=== PATIENT | female | born 1935 | race Hispanic/Latino ===

== ENCOUNTER 2021-02-21 21:13 | Inpatient (IN) | payer MEDICARE ==
[~2021-02-21] VITALS: Ht 160 cm; Wt 59.4 kg
[2021-02-21] MEDS ORDERED: SODIUM CHLORIDE 0.9% 1000ML 1,000 ML IV ONE ×2 (21:30)
[2021-02-21] MEDS ORDERED: PIPERACILLIN/TAZOBACTAM 3.375 GM in SODIUM CHLORIDE 0.9% 50ML 50 ML IV ONE (21:30)
[2021-02-21 21:45] LABS: BASOPHILS % 0.2 % (0.0-1.0); HEMATOCRIT 46.8 % (34.2-44.1); HEMOGLOBIN 15.1 g/dL (12.0-16.0); LYMPHOCYTES # (AUTO) 0.9 (1.0-3.2); LYMPHOCYTES % 6.6 % (18.0-39.1); MEAN CORPUSCULAR HEMOGLOBIN 26.3 pg (28-32); MEAN CORPUSCULAR HGB CONC 32.3 g/dL (31-35); MEAN CORPUSCULAR VOLUME 81.4 fL (81-99); MONOCYTES # (AUTO) 1.7 (0.2-0.8); MONOCYTES % 11.7 % (4.4-11.3); NEUTROPHILS # (AUTO) 11.6 (2.1-6.9); NEUTROPHILS % 80.9 % (38.7-80.0); PLATELET COUNT 277 x10e3/uL (140-360); RED BLOOD COUNT 5.75 x10e6/uL (3.6-5.1); RED CELL DISTRIBUTION WIDTH 14.2 % (11.7-14.4)
[2021-02-21 22:04] LABS: ALANINE AMINOTRANSFERASE 18 IU/L (0-55); ANION GAP 16.1 mmol/L (8-16); BLOOD UREA NITROGEN 16 mg/dL (7-26); BUN/CREATININE RATIO 10 (6-25); CALCIUM 9.9 mg/dL (8.4-10.2); CARBON DIOXIDE 21 mmol/L (22-29); CHLORIDE 98 mmol/L (98-107); CREATININE, SERUM 1.56 mg/dL (0.57-1.11); EST GLOMERULAR FILTRATION RATE 32 ML/MIN (60-); GLUCOSE 197 mg/dL (74-118); POTASSIUM 3.1 mmol/L (3.5-5.1); SODIUM 132 mmol/L (136-145)
[2021-02-21 22:05] LABS: ALBUMIN 3.3 g/dL (3.5-5.0); ALBUMIN/GLOBULIN RATIO 0.8 (0.8-2.0); ALKALINE PHOSPHATASE 67 IU/L (40-150); CREATINE KINASE 185 IU/L (29-168)
[2021-02-21 23:34] LABS: CLARITY,URINE CLEAR (CLEAR); COLOR,URINE YELLOW (YELLOW); KETONES,URINE NEGATIVE (NEGATIVE); LEUKOCYTE ESTERASE ,URINE NEGATIVE (NEGATIVE); NITRITE,URINE NEGATIVE (NEGATIVE); PROTEIN,URINE DIPSTICK TRACE (NEGATIVE); URINE UROBILINOGEN 1 mg/dL (0.2 - 1)
[2021-02-21 23:39] LABS: BACTERIA,URINE FEW /HPF; EPITHELIAL CELLS,URINE FEW /LPF; RBC,URINE 0-5 /HPF (0-5); WBC,URINE (MAN) 0-5 /HPF (0-5)
[2021-02-22] MEDS: SODIUM CHLORIDE 0.9% 1000ML 1,000 ML IV SCH ×3 (00:01→23:29)
[2021-02-22] MEDS ORDERED: ONDANSETRON HCL INJ 2MG/ML 2ML 2 MG/ML VIAL IV PRN (00:15)
[2021-02-22] MEDS ORDERED: ACETAMINOPHEN 325 MG TAB PO PRN (00:15)
[2021-02-22] MEDS ORDERED: SODIUM CHLORIDE 0.9% 250ML 250 ML IV ONE (01:45)
[2021-02-22] MEDS ORDERED: TRIAMTERENE-HCTZ1 EA PO (01:55)
[2021-02-22] MEDS ORDERED: AMLODIPINE-BEN1 EAC4 PO (01:55)
[2021-02-22] MEDS ORDERED: MONTELUKAST SOD10 MG PO (01:55)
[2021-02-22] MEDS ORDERED: FLUOXETINE HCL20 MG PO (01:55)
[2021-02-22] MEDS ORDERED: METFORMIN HCL500 MG PO (01:55)
[2021-02-22 02:00] VITALS: BP 72/57
[2021-02-22] MEDS: MIDODRINE 2.5 MG TAB PO SCH ×4 (05:07→16:59)
[2021-02-22 06:10] VITALS: BP 83/48
[2021-02-22] MEDS ORDERED: DEXTROSE 50% SYRINGE 50 ML IV PRN (07:45)
[2021-02-22 08:05] LABS: BASOPHILS % 0.2 % (0.0-1.0); EOSINOPHILS % 0.3 % (0.0-6.0); HEMATOCRIT 36.7 % (34.2-44.1); HEMOGLOBIN 11.6 g/dL (12.0-16.0); LYMPHOCYTES # (AUTO) 1.1 (1.0-3.2); LYMPHOCYTES % 9.3 % (18.0-39.1); MEAN CORPUSCULAR HEMOGLOBIN 26.4 pg (28-32); MEAN CORPUSCULAR HGB CONC 31.6 g/dL (31-35); MEAN CORPUSCULAR VOLUME 83.4 fL (81-99); MONOCYTES # (AUTO) 1.7 (0.2-0.8); MONOCYTES % 13.8 % (4.4-11.3); NEUTROPHILS # (AUTO) 9.2 (2.1-6.9); PLATELET COUNT 218 x10e3/uL (140-360); RED CELL DISTRIBUTION WIDTH 14.3 % (11.7-14.4)
[2021-02-22 08:25] LABS: ANION GAP 10.1 mmol/L (8-16); CALCIUM 7.5 mg/dL (8.4-10.2); CREATININE, SERUM 0.8 mg/dL (0.57-1.11); POTASSIUM 3.1 mmol/L (3.5-5.1)
[2021-02-22 08:29] LABS: CREATINE KINASE MB 2.5 ng/mL (0-5.0)
[2021-02-22] MEDS: Aztreonam 1 GM in SODIUM CHLORIDE 0.9% 50ML 50 ML IV SCH ×2 (08:30→20:37)
[2021-02-22 09:00] VITALS: BP 83/48
[2021-02-22] MEDS: HEPARIN SOD (PORCINE) 5,000 UNIT/ML VIAL SC SCH ×2 (09:00→20:45)
[2021-02-22] MEDS: FLUOXETINE HCL 20 MG CAP PO SCH (09:15)
[2021-02-22] MEDS: PREDNISONE 20 MG TAB PO SCH (09:15)
[2021-02-22] MEDS: MONTELUKAST SODIUM 10 MG TAB PO SCH (09:15)
[2021-02-22] MEDS: INSULIN REGULAR, HUMAN 100 UNIT/1 ML SQ SCH ×3 (11:18→20:37)
[2021-02-22] MEDS ORDERED: POTASSIUM CHLORIDE 20 MEQ TAB CR PO ONE (12:00)
[2021-02-22 16:47] LABS: CREATINE KINASE MB 2.5 ng/mL (0-5.0)
[2021-02-22 20:53] VITALS: BP 91/56
[2021-02-22 21:00] VITALS: BP 91/56
[2021-02-23] MEDS: ALBUTEROL/IPRATROPIUM 3 ML NEB NEB PRN ×3 (02:45→13:30)
[2021-02-23 05:09] VITALS: BP 92/59
[2021-02-23 05:31] LABS: BASOPHILS % 0.1 % (0.0-1.0); EOSINOPHILS % 0.3 % (0.0-6.0); HEMATOCRIT 34.5 % (34.2-44.1); HEMOGLOBIN 10.8 g/dL (12.0-16.0); LYMPHOCYTES # (AUTO) 1.1 (1.0-3.2); LYMPHOCYTES % 11.4 % (18.0-39.1); MEAN CORPUSCULAR HEMOGLOBIN 26.3 pg (28-32); MEAN CORPUSCULAR HGB CONC 31.3 g/dL (31-35); MEAN CORPUSCULAR VOLUME 84.1 fL (81-99); MONOCYTES # (AUTO) 1.1 (0.2-0.8); MONOCYTES % 10.9 % (4.4-11.3); NEUTROPHILS # (AUTO) 7.6 (2.1-6.9); NEUTROPHILS % 76.8 % (38.7-80.0); PLATELET COUNT 186 x10e3/uL (140-360); RED CELL DISTRIBUTION WIDTH 14.6 % (11.7-14.4)
[2021-02-23 05:55] LABS: ALBUMIN 2.3 g/dL (3.5-5.0); ALBUMIN/GLOBULIN RATIO 0.9 (0.8-2.0); ANION GAP 9.3 mmol/L (8-16); CALCIUM 7.8 mg/dL (8.4-10.2); CREATININE, SERUM 0.7 mg/dL (0.57-1.11); POTASSIUM 3.3 mmol/L (3.5-5.1)
[2021-02-23] MEDS ORDERED: BENZONATATE 100 MG CAP PO PRN (06:45)
[2021-02-23] MEDS: INSULIN REGULAR, HUMAN 100 UNIT/1 ML SQ SCH ×2 (07:30→11:30)
[2021-02-23] MEDS ORDERED: POTASSIUM CHLORIDE 20 MEQ TAB CR PO ONE (08:00)
[2021-02-23 08:34] VITALS: BP 150/74
[2021-02-23 09:00] VITALS: BP 150/74
[2021-02-23] MEDS: HEPARIN SOD (PORCINE) 5,000 UNIT/ML VIAL SC SCH (09:00)
[2021-02-23] MEDS: MIDODRINE 2.5 MG TAB PO SCH ×2 (09:40→11:53)
[2021-02-23] MEDS: Aztreonam 1 GM in SODIUM CHLORIDE 0.9% 50ML 50 ML IV SCH (09:40)
[2021-02-23] MEDS: MONTELUKAST SODIUM 10 MG TAB PO SCH (09:40)
[2021-02-23] MEDS: FLUOXETINE HCL 20 MG CAP PO SCH (09:40)
[2021-02-23] MEDS: PREDNISONE 20 MG TAB PO SCH (09:40)
[2021-02-23 11:59] VITALS: BP 138/89
[2021-02-23] MEDS ORDERED: PREDNISONE20 MG PO (13:07)
[2021-02-23] MEDS ORDERED: ADULT WAL-TUSS118 ML PO (13:07)
[2021-02-23] MEDS ORDERED: LORATADINE10 MG PO (13:07)
[2021-02-23] MEDS ORDERED: ZITHROMAX500 MG PO (13:07)
[2021-02-23] MEDS ORDERED: PROVENTIL HFA6.7 GM INH (13:07)
[2021-02-23] MEDS ORDERED: TESSALON PERLE100 MG PO (13:07)
[2021-02-23] MEDS ORDERED: LEVOFLOXACIN250 MG PO (13:09)
== END 2021-02-23 14:35 | disposition home or self-care (01) | DRG 872 ==
LOC: ER 21:25 → ERHOLD 02-22 00:04 → MED/SURG3 02-22 01:01
PROVIDERS: ADMIT Internal Medicine; ATTEND Internal Medicine
DX: A41.9 Sepsis, unspecified organism (principal); J44.1 Chronic obstructive pulmonary disease with (acute) exacerbation; N17.9 Acute kidney failure, unspecified; E87.6 Hypokalemia; F39 Unspecified mood [affective] disorder; E11.9 Type 2 diabetes mellitus without complications; Z87.891 Personal history of nicotine dependence; Z20.822 Contact with and (suspected) exposure to COVID-19
CPT/HCPCS: 36415; 71045; 80048; 80053; 80061; 81001; 82550; 82553; 82948; 83036; 83605; 84484; 85025; 87040; 87086; 87400; 93005; 94640; 94799; 96361; 99284; J0456; J1644; J2543; J7030; J7050; J7512; U0002

== ENCOUNTER 2022-08-05 07:07 | Inpatient (IN) | payer MEDICARE ==
[~2022-08-05] VITALS: Ht 160 cm; Wt 59.4 kg
[~2022-08-05 07:07] MED LIST: ADULT WAL-TUSS118 ML PO; AMLODIPINE-BEN1 EAC4 PO; FLUOXETINE HCL20 MG PO; LEVOFLOXACIN250 MG PO; LORATADINE10 MG PO; METFORMIN HCL500 MG PO; MONTELUKAST SOD10 MG PO; PREDNISONE20 MG PO; PROVENTIL HFA6.7 GM INH; TESSALON PERLE100 MG PO; TRIAMTERENE-HCTZ1 EA PO; ZITHROMAX500 MG PO
[2022-08-05 07:28] LABS: BASOPHILS % 0.4 % (0.0-1.0); EOSINOPHILS % 0.3 % (0.0-6.0); HEMATOCRIT 41.8 % (34.2-44.1); HEMOGLOBIN 13.3 g/dL (12.0-16.0); LYMPHOCYTES # (AUTO) 0.8 (1.0-3.2); LYMPHOCYTES % 8.1 % (18.0-39.1); MEAN CORPUSCULAR HEMOGLOBIN 26.4 pg (28-32); MEAN CORPUSCULAR HGB CONC 31.8 g/dL (31-35); MEAN CORPUSCULAR VOLUME 83.1 fL (81-99); MONOCYTES # (AUTO) 1.4 (0.2-0.8); MONOCYTES % 13.5 % (4.4-11.3); NEUTROPHILS % 77.3 % (38.7-80.0); PLATELET COUNT 281 x10e3/uL (140-360); RED BLOOD COUNT 5.03 x10e6/uL (3.6-5.1); RED CELL DISTRIBUTION WIDTH 14.8 % (11.7-14.4)
[2022-08-05 08:04] LABS: ALBUMIN 3.5 g/dL (3.5-5.0); ALBUMIN/GLOBULIN RATIO 0.9 (0.8-2.0); ANION GAP 14.2 mmol/L (8-16); CREATININE, SERUM 0.67 mg/dL (0.57-1.11); POTASSIUM 4.2 mmol/L (3.5-5.1)
[2022-08-05] MEDS ORDERED: KETOROLAC TROMETHAMINE 30 MG/ML VIAL IV STA (08:31)
[2022-08-05] MEDS ORDERED: ASPIRIN 81 MG CHEW TAB PO ONE (09:15)
[2022-08-05] MEDS ORDERED: Morphine 4mg INJECTION 4 MG/ML INJ IV PRN (09:15)
[2022-08-05 09:42] VITALS: PULSE 74; RESP 18; O2SAT 97
[2022-08-05] MEDS ORDERED: ACETAMINOPHEN 325 MG TAB PO PRN (11:00)
[2022-08-05] MEDS ORDERED: DOCUSATE SODIUM 100 MG CAP PO PRN (11:00)
[2022-08-05] MEDS ORDERED: SIMETHICONE 80 MG CHEW PO PRN (11:00)
[2022-08-05] MEDS ORDERED: METHYLPREDNISOLONE SOD SUCC 40 MG/ML VIAL 1ML IV SCH (11:00)
[2022-08-05] MEDS ORDERED: MELATONIN 3 MG TAB PO PRN (11:00)
[2022-08-05] MEDS ORDERED: ONDANSETRON HCL INJ 2MG/ML 2ML 2 MG/ML VIAL IV PRN (11:00)
[2022-08-05] MEDS ORDERED: BENZONATATE 100 MG CAP PO PRN (11:00)
[2022-08-05 11:18] LABS: CHOL/HDL RATIO 2.7 (3.0-3.6)
[2022-08-05 12:01] LABS: CREATINE KINASE 30 IU/L (29-168)
[2022-08-05 13:55] VITALS: BP 105/61; PULSE 74; RESP 18; TEMP 98.1; O2SAT 97
[2022-08-05 14:01] VITALS: BP 105/61; PULSE 78; RESP 20; TEMP 98.1; O2SAT 100
[2022-08-05] MEDS ORDERED: AMLODIPINE-BEN1 EAC5 PO (14:08)
[2022-08-05] MEDS ORDERED: HYDROXYZINE HCL25 MG PO (14:10)
[2022-08-05] MEDS ORDERED: MYSOLINE50 MG PO (14:10)
[2022-08-05] MEDS ORDERED: RALOXIFENE HCL60 MG PO (14:10)
[2022-08-05] MEDS ORDERED: FLUTICASONE-SA1 EAC1 IH (14:10)
[2022-08-05] MEDS: NICOTINE 14 MG/EA PATCH TOP SCH (14:43)
[2022-08-05 17:11] VITALS: BP 132/75; PULSE 82; RESP 18; TEMP 97.5; O2SAT 100
[2022-08-05] MEDS: BENZONATATE 100 MG CAP PO SCH (17:31)
[2022-08-05] MEDS: FAMOTIDINE 20 MG TAB PO SCH (17:31)
[2022-08-05] MEDS: ENOXAPARIN SOD INJ 40 MG/0.4 ML SYR SC SCH (17:32)
[2022-08-05 19:19] LABS: CREATINE KINASE MB 2.1 ng/mL (0-5.0)
[2022-08-05 20:00] VITALS: BP 126/80; PULSE 81; RESP 17; TEMP 97.4; O2SAT 96
[2022-08-05] MEDS: HYDROXYZINE HCL 25 MG TAB PO SCH (20:32)
[2022-08-05] MEDS: METHYLPREDNISOLONE SOD SUCC 125 MG/2ML VIAL IV SCH (20:32)
[2022-08-05] MEDS: ATORVASTATIN 40 MG TAB PO SCH (20:32)
[2022-08-05 21:50] VITALS: PULSE 80; RESP 18; O2SAT 99
[2022-08-05] MEDS: ALBUTEROL/IPRATROPIUM 3 ML NEB NEB PRN (21:50)
[2022-08-06] VITALS (11 sets, daily range): BP systolic 113–141; BP diastolic 60–84; PULSE 80–94; RESP 16–20; TEMP 97.5–98.5; O2SAT 96–100
[2022-08-06] MEDS: GUAIFENESIN/DEXTROMETHORPHAN LIQD 5 ML UDC NG PRN ×2 (03:03→08:51)
[2022-08-06 03:34] LABS: HEMATOCRIT 40.2 % (34.2-44.1); LYMPHOCYTES # (AUTO) 0.5 (1.0-3.2); LYMPHOCYTES % 7.5 % (18.0-39.1); MEAN CORPUSCULAR HEMOGLOBIN 26.7 pg (28-32); MEAN CORPUSCULAR HGB CONC 32.3 g/dL (31-35); MEAN CORPUSCULAR VOLUME 82.7 fL (81-99); MONOCYTES # (AUTO) 0.2 (0.2-0.8); MONOCYTES % 2.3 % (4.4-11.3); NEUTROPHILS # (AUTO) 6.3 (2.1-6.9); NEUTROPHILS % 89.5 % (38.7-80.0); PLATELET COUNT 269 x10e3/uL (140-360); RED BLOOD COUNT 4.86 x10e6/uL (3.6-5.1); RED CELL DISTRIBUTION WIDTH 14.6 % (11.7-14.4)
[2022-08-06] MEDS: ALBUTEROL/IPRATROPIUM 3 ML NEB NEB PRN ×2 (03:40→10:32)
[2022-08-06 03:51] LABS: ANION GAP 12.1 mmol/L (8-16); CALCIUM 9.1 mg/dL (8.4-10.2); CREATININE, SERUM 0.65 mg/dL (0.57-1.11); POTASSIUM 4.1 mmol/L (3.5-5.1)
[2022-08-06 04:14] LABS: CREATINE KINASE MB 1.2 ng/mL (0-5.0)
[2022-08-06] MEDS: PRIMIDONE 50 MG TAB PO SCH ×2 (08:39→16:57)
[2022-08-06] MEDS: FAMOTIDINE 20 MG TAB PO SCH ×2 (08:39→16:57)
[2022-08-06] MEDS: NICOTINE 14 MG/EA PATCH TOP SCH (08:40)
[2022-08-06] MEDS: LORATADINE 10 MG TAB PO SCH (08:40)
[2022-08-06] MEDS: ASPIRIN 325 MG TAB PO SCH (08:40)
[2022-08-06] MEDS: BENZONATATE 100 MG CAP PO SCH ×4 (08:40→21:18)
[2022-08-06] MEDS: METHYLPREDNISOLONE SOD SUCC 125 MG/2ML VIAL IV SCH ×2 (08:40→21:18)
[2022-08-06] MEDS: ENOXAPARIN SOD INJ 40 MG/0.4 ML SYR SC SCH (16:58)
[2022-08-06] MEDS: HYDROXYZINE HCL 25 MG TAB PO SCH (21:18)
[2022-08-06] MEDS: ATORVASTATIN 40 MG TAB PO SCH (21:18)
[2022-08-07] VITALS (11 sets, daily range): BP systolic 119–156; BP diastolic 65–93; PULSE 70–99; RESP 16–19; TEMP 97.5–98.7; O2SAT 95–100
[2022-08-07] MEDS: BENZONATATE 100 MG CAP PO SCH ×3 (06:00→22:10)
[2022-08-07] MEDS ORDERED: REGADENOSON 0.4 MG/5 ML SYR IV ONE (08:20)
[2022-08-07] MEDS: BUDESONIDE 0.5MG/2 ML NEB INH SCH ×2 (10:30→19:00)
[2022-08-07] MEDS: ALBUTEROL/IPRATROPIUM 3 ML NEB NEB SCH ×5 (10:30→23:00)
[2022-08-07] MEDS: GUAIFENESIN/DEXTROMETHORPHAN LIQD 5 ML UDC NG PRN (10:46)
[2022-08-07] MEDS: PRIMIDONE 50 MG TAB PO SCH ×2 (10:46→16:22)
[2022-08-07] MEDS: FAMOTIDINE 20 MG TAB PO SCH ×2 (10:46→16:22)
[2022-08-07] MEDS: NICOTINE 14 MG/EA PATCH TOP SCH (10:46)
[2022-08-07] MEDS: ASPIRIN 325 MG TAB PO SCH (10:46)
[2022-08-07] MEDS: LORATADINE 10 MG TAB PO SCH (10:46)
[2022-08-07] MEDS: METHYLPREDNISOLONE SOD SUCC 125 MG/2ML VIAL IV SCH ×2 (10:47→22:11)
[2022-08-07] MEDS ORDERED: ONDANSETRON HCL 4 MG ORAL DISINTEGRATING TAB PO PRN (11:45)
[2022-08-07] MEDS ORDERED: AZITHROMYCIN 250 MG TAB PO SCH (15:00)
[2022-08-07] MEDS: ENOXAPARIN SOD INJ 40 MG/0.4 ML SYR SC SCH (16:22)
[2022-08-07] MEDS ORDERED: FUROSEMIDE INJ 10 MG/ML 2 ML VIAL IV SCH (18:00)
[2022-08-07] MEDS: ATORVASTATIN 40 MG TAB PO SCH (22:10)
[2022-08-07] MEDS: HYDROXYZINE HCL 25 MG TAB PO SCH (22:11)
[2022-08-08 00:17] VITALS: BP 113/69; PULSE 77; RESP 18; TEMP 97.2; O2SAT 100
[2022-08-08 03:00] VITALS: PULSE 80; RESP 18; O2SAT 96
[2022-08-08] MEDS: ALBUTEROL/IPRATROPIUM 3 ML NEB NEB SCH (03:00)
[2022-08-08 04:00] VITALS: BP 129/92; PULSE 98; RESP 18; TEMP 98.1; O2SAT 97
[2022-08-08] MEDS ORDERED: FAMOTIDINE20 MG PO (05:57)
[2022-08-08] MEDS ORDERED: NICODERM CQ1 EAC1 TOP (05:57)
[2022-08-08] MEDS ORDERED: PREDNISONE20 MG PO (05:57)
[2022-08-08] MEDS ORDERED: AZITHROMYCIN250 MG PO (05:57)
[2022-08-08] MEDS ORDERED: Benzonatate PO (05:57)
[2022-08-08] MEDS ORDERED: ATORVASTATIN CA40 MG PO (05:57)
[2022-08-08] MEDS ORDERED: FUROSEMIDE20 MG PO (05:57)
[2022-08-08] MEDS ORDERED: PROVENTIL HFA6.7 GM INH (05:57)
[2022-08-08] MEDS ORDERED: LORATADINE10 MG PO (05:57)
[2022-08-08] MEDS: BENZONATATE 100 MG CAP PO SCH (06:05)
[2022-08-08] MEDS: GUAIFENESIN/DEXTROMETHORPHAN LIQD 5 ML UDC NG PRN (06:05)
== END 2022-08-08 08:00 | disposition home or self-care (01) | DRG 192 ==
LOC: ER 07:09 → ERHOLD 09:04 → MED/SURG 13:18 → OBSVTOIN 08-06 10:40
PROVIDERS: ADMIT Internal Medicine; ATTEND Internal Medicine
DX: J44.1 Chronic obstructive pulmonary disease with (acute) exacerbation (principal); R07.9 Chest pain, unspecified; Z72.0 Tobacco use; E11.9 Type 2 diabetes mellitus without complications; Z79.4 Long term (current) use of insulin
CPT/HCPCS: 0223U; 36415; 71045; 78452; 80048; 80053; 80061; 82550; 82553; 83880; 84484; 85025; 93005; 93017; 93306; 94799; 99285; A9502; G0378; J1650; J1885; J1940; J2270; J2920; J2930; J3410; J7050